=== PATIENT | female | born 1960 | race Caucasian/White ===

== ENCOUNTER 2021-01-29 18:18 | Emergency (ER) | payer BC, OTHER ==
[~2021-01-29] VITALS: Ht 157.5 cm; Wt 85.2 kg
[2021-01-29 18:49] LABS: BASOPHILS % (AUTO) 1 % (0-1); EOSINOPHILS % (AUTO) 3 % (1-7); LYMPHOCYTES % (AUTO) 27 % (22-44); MEAN CORPUSCULAR HEMOGLOBIN 31.6 pg (27.0-34.8); MEAN CORPUSCULAR HGB CONC 33.7 g/dL (32.4-35.8); MEAN PLATELET VOLUME 8.3 fL (7.4-10.4); MONOCYTES % (AUTO) 10 % (2-9); NEUTROPHILS % (AUTO) 59 % (42-75); PLATELET COUNT 253 x10^3/uL (130-400); RED CELL DISTRIBUTION WIDTH 13.4 % (9.6-15.2)
[2021-01-29 18:52] LABS: MD NO
[2021-01-29 18:57] LABS: ALANINE AMINOTRANSFERASE 33 U/L (12-78); ALBUMIN 3.3 g/dL (3.4-5.0); ANION GAP 3 mmol/L (5-15); CALCIUM 9.3 mg/dL (8.5-10.1); CHLORIDE 106 mmol/L (98-107); CREATININE 0.88 mg/dL (0.55-1.02)
[2021-01-29 18:59] LABS: ALKALINE PHOSPHATASE 75 U/L (45-117); BILIRUBIN,TOTAL 0.8 mg/dL (0.2-1.0); TOTAL PROTEIN 7.2 g/dL (6.4-8.2)
--- NOTE | 2021-01-29 21:34 | NUR ---
pt came into ed this evening due to diarrhea recently. pt reports 2-3 episodes per day of brown loose stools, reports it seems to be primarily after eating. reports cramping feeling prior to bowel movements and decreased cramping after. lower abdominal pain across R and L quadrants. denies nausea/vomitting at this time. pt placed on spo2/bp monitoring. wctm pt resting on gurney, bed in lowest, rails engaged, call light on lap, cabrera araujo md at for eval and poc.
[2021-01-29 22:07] LABS: MICROSCOPIC INDICATED
[2021-01-29] MEDS ORDERED: CIPROFLOXACIN 500 MG TABLET PO ONE (22:30)
--- NOTE | 2021-01-29 22:45 | NUR ---
pt medicated per mar, nad, vss, to be dc'd after medication observation. pt denies additional questions or needs at this time. wctm.
[2021-01-29] MEDS ORDERED: CIPROFLOXACIN 500 MG TABLET ONE (23:11)
[2021-01-29 23:13] VITALS: BP 144/76
--- NOTE | 2021-01-29 23:32 | NUR ---
Patient given discharge instructions and they have confirmed that they understand the instructions. Patient ambulatory with steady gait. nad, no personal belongings left in room after dc.
== END 2021-01-29 23:33 | disposition home or self-care (01) ==
LOC: ED 22:12
DX: N30.00 Acute cystitis without hematuria (principal); R19.7 Diarrhea, unspecified; Z90.89 Acquired absence of other organs
CPT/HCPCS: 36415; 80053; 81001; 83690; 85025; 87086; 99283